=== PATIENT | male | born 1970 | race African-American/Black ===

== ENCOUNTER 2017-11-01 12:09 | Emergency (ER) | payer MEDICAID, OTHER ==
[~2017-11-01] VITALS: Ht 190.5 cm; Wt 87.5 kg
[2017-11-01 12:39] VITALS: BP 131/86
[2017-11-01] MEDS ORDERED: KETOROLAC TROMETH 60MG/2ML VIAL IM ONE (13:30)
== END 2017-11-01 13:29 | disposition home or self-care (01) ==
LOC: ER 12:09
DX: S62.625A Displaced fracture of middle phalanx of left ring finger, initial encounter for closed fracture (principal); W23.0XXA Caught, crushed, jammed, or pinched between moving objects, initial encounter; Y93.89 Activity, other specified; Y92.89 Other specified places as the place of occurrence of the external cause; Y99.8 Other external cause status
CPT/HCPCS: 73140; 96372; 99284; J1885